=== PATIENT | female | born 1995 | race Caucasian/White ===

== ENCOUNTER 2017-11-19 13:42 | Emergency (ER) | payer OTHER ==
[~2017-11-19] VITALS: Ht 165.1 cm; Wt 70.8 kg
--- NOTE | 2017-11-19 13:49 | NUR ---
[id number] FROM HOME: S/P WITNESSED SEIZURE x 3. VERSED 5 GIVEN IN FIELD. A/OX1. UNRESPONSIVE. FAMILY AT BEDSIDE. VSS. ST118. WILL CONTINUE TO MONITOR. SAFETY MEASURES IN PLACE. CALL LIGHT WITHIN REACH.
[2017-11-19 14:49] LABS: BASOPHILS % (AUTO) 0.3 % (0.0-2.0); HEMATOCRIT 41 % (33-45); HEMOGLOBIN 13.8 g/dL (11.5-14.8); LYMPHOCYTES # (AUTO) 0.5 /CMM (0.8-4.8); LYMPHOCYTES % (AUTO) 3.4 % (20.0-44.0); MEAN CORPUSCULAR HGB CONC 34 g/dl (31.0-36.0); MEAN CORPUSCULAR VOLUME 89 fL (82-100); MONOCYTES % (AUTO) 6.2 % (2.0-12.0); NEUTROPHILS # (AUTO) 14.1 /CMM (1.8-8.9); NEUTROPHILS % (AUTO) 90.1 % (43.0-81.0); PLATELET COUNT (AUTO) 270 /CMM (150-450); RDW COEFFICIENT OF VARIATION 13.1 (11.5-15.0); RED BLOOD CELL COUNT(AUTO) 4.58 MIL/uL (4.0-5.2); WHITE BLOOD COUNT (AUTO) 15.6 K/uL (4.3-11.0)
[2017-11-19 14:59] LABS: CALCIUM, SERUM 8.5 mg/dL (8.5-10.1); CARBON DIOXIDE 26 mmol/L (21-32); CHLORIDE 106 mmol/L (98-107); CREATININE 1.4 mg/dL (0.6-1.3); GLUCOSE 100 mg/dL (74-106); POTASSIUM 5.1 mmol/L (3.5-5.1); SODIUM SERUM 141 mmol/L (136-145); UREA NITROGEN, BLOOD 13 mg/dL (7-18)
[2017-11-19] MEDS ORDERED: IV NS 0.9% 1,000 ML BAG IV ONE ×2 (15:00→16:30)
[2017-11-19] MEDS ORDERED: LEVETIRACETAM (500MG) 500 MG in IV NS 0.9% 100 ML IV ONE (15:00)
[2017-11-19 15:03] LABS: INR 0.95 (0.85-1.15)
[2017-11-19 15:12] LABS: ACETAMINOPHEN 0 ug/ml (10-30); ALANINE AMINOTRANSFERASE 40 U/L (12-78); ALCOHOL, BLOOD < 3 mg/dL (0-0); ALKALINE PHOSPHATASE 80 U/L (46-116); ASPARTATE AMINOTRANSFERASE 71 U/L (15-37); BILIRUBIN,DIRECT 0.1 mg/dL (0.0-0.2); BILIRUBIN,TOTAL 0.2 mg/dL (0.2-1.0); SALICYLATE 1.3 mg/dL (2.8-20.0); TOTAL PROTEIN, SERUM 7.3 g/dL (6.4-8.2)
--- NOTE | 2017-11-19 15:16 | NUR ---
(16 ) FR koenig catheter inserted per sterile protocal. Immediate output (500 )ML of urine, color (YELLOW ), clarity (CLEAR ).
[2017-11-19 15:19] LABS: APPEARANCE,URINE Clear (CLEAR); BILIRUBIN,URINE Negative (NEGATIVE); BLOOD, URINE Moderate Ery/uL (NEGATIVE); COLOR,URINE Yellow (YELLOW); KETONES,URINE Negative (NEGATIVE); LEUKOCYTE ESTERASE ,URINE Negative (NEGATIVE); NITRITE, URINE Negative (NEGATIVE); PROTEIN,URINE 30 mg/dl (NEGATIVE); UGLUCOSE Negative (NEGATIVE); UROBILINOGEN,URINE 0.2 EU/dL (0.2)
[2017-11-19 15:22] LABS: CREATINE KINASE, TOTAL 958 U/L (26-192); THYROID STIMULATING HORMONE 1.504 uIU/mL (0.358-3.74)
[2017-11-19 15:35] LABS: BACTERIA,URINE None seen /HPF (None Seen); SQUAMOUS EPITHELIAL CELL,UR Few /HPF (None Seen)
--- NOTE | 2017-11-19 16:02 | NUR ---
PATIENT PULLED OUT IV FROM LEFT HAND. SITE SECURED WITH GAUZE AND TAPE. NEW IV STARTED ON RAC, 20G. PATIENT VERY IRRITABLE, ATTEMPTING TO PULL WRIGHT ALSO. INFORMED, STATED OKAY TO DC WRIGHT CATHETER. WRIGHT REMOVED ALSO.
[2017-11-19] MEDS ORDERED: MIDAZOLAM HCL 2 MG/2ML VIAL ONE (16:15)
--- NOTE | 2017-11-19 16:28 | NUR ---
PATIENT TAKEN TO CT, MEDICATED WIT VERSED PRIOR TO TRANSPORT
[2017-11-19] MEDS ORDERED: MIDAZOLAM HCL 2 MG/2ML VIAL IV ONE ×2 (16:30)
[2017-11-19] MEDS: IV NS 0.9% 1,000 ML BAG IV ONE ×2 (16:30→16:40)
--- NOTE | 2017-11-19 16:40 | NUR ---
PER DR. DAVIS, ADD 1.2L NS ON TOP OF PREVIOUS 1L GIVEN PER SEPSIS PROTOCOL.
--- NOTE | 2017-11-19 16:42 | NUR ---
PATIENT RETURNED FROM CT IN STABLE CONDITION.
[2017-11-19] MEDS ORDERED: VANCOMYCIN 1 GM in IV D5W 250 ML IV ONE (17:00)
[2017-11-19] MEDS ORDERED: PIPERACILLIN /TAZOBACTAM 3.375 G in IV D5W 50 ML IV ONE (17:00)
--- NOTE | 2017-11-19 18:05 | NUR ---
RECEIVED A CALL FROM [facility] AND SPOKE TO EDGAR. WAS TOLD THAT THIS PT WILL BE GOING TO [facility] ED. DR CASSIDY IS THE ACCEPTING MD. NUMBER FOR REPORT IS [phone]. [facility] TRANSPORT WILL ARRIVE AT 1835.
--- NOTE | 2017-11-19 18:14 | NUR ---
REPORT GIVEN TO SUSHILA BENAVIDES FOR [facility] UPON TRANSFER
--- NOTE | 2017-11-19 18:46 | NUR ---
REPORT GIVEN TO TEJAL THOMAS WITH [facility] FOR TRANSFER TO [facility].
[2017-11-19 18:47] VITALS: BP 124/98
--- NOTE | 2017-11-19 19:08 | NUR ---
PT TRANSFERED TO [facility] PER ACLS PROTOCOL.
== END 2017-11-19 19:07 | disposition short-term general hospital (02) ==
LOC: ER 13:47
DX: R56.9 Unspecified convulsions (principal); J69.0 Pneumonitis due to inhalation of food and vomit; F32.9 Major depressive disorder, single episode, unspecified; F41.9 Anxiety disorder, unspecified; F10.10 Alcohol abuse, uncomplicated; F12.10 Cannabis abuse, uncomplicated; Z91.5 Personal history of self-harm
CPT/HCPCS: 36415; 70450-TC; 71045-TC; 72125-TC; 80048-TC; 80076-TC; 80305; 81000-TC; 82550-TC; 82553-TC; 82962-TC; 83605-TC; 83735-TC; 84443-TC; 84703-TC; 85025-TC; 85730-TC; 87040-TC; 87086-TC; A4606; G0480; J1953; J2250; J2543; J3370; J7030; J7050; J7060; Z7610

== ENCOUNTER 2019-10-27 23:38 | Emergency (ER) | payer OTHER ==
[~2019-10-27] VITALS: Ht 162.6 cm; Wt 54.4 kg
[2019-10-28 00:05] LABS: BASOPHILS % (AUTO) 0.4 % (0.0-2.0); EOSINOPHILS % (AUTO) 0.5 % (0.0-6.0); HEMATOCRIT 42 % (33-45); HEMOGLOBIN 14.2 g/dL (11.5-14.8); LYMPHOCYTES # (AUTO) 1.9 /CMM (0.8-4.8); LYMPHOCYTES % (AUTO) 21.4 % (20.0-44.0); MEAN CORPUSCULAR HGB CONC 34 g/dl (31.0-36.0); MEAN CORPUSCULAR VOLUME 89 fL (82-100); MONOCYTES # (AUTO) 0.5 /CMM (0.1-1.30); NEUTROPHILS # (AUTO) 6.3 /CMM (1.8-8.9); NEUTROPHILS % (AUTO) 71.7 % (43.0-81.0); PLATELET COUNT (AUTO) 266 /CMM (150-450); RED BLOOD CELL COUNT(AUTO) 4.72 MIL/uL (4.0-5.2); WHITE BLOOD COUNT (AUTO) 8.8 K/uL (4.3-11.0)
[2019-10-28 00:08] LABS: APPEARANCE,URINE Cloudy (CLEAR); BILIRUBIN,URINE Negative (NEGATIVE); BLOOD, URINE Small Ery/uL (NEGATIVE); COLOR,URINE Yellow (YELLOW); KETONES,URINE Negative (NEGATIVE); LEUKOCYTE ESTERASE ,URINE Negative (NEGATIVE); NITRITE, URINE Negative (NEGATIVE); PH,URINE 7.5 (5.0-8.0); PROTEIN,URINE 30 mg/dl (NEGATIVE); UGLUCOSE Negative (NEGATIVE)
[2019-10-28 00:12] LABS: CARBON DIOXIDE 28 mmol/L (21-32); CHLORIDE 102 mmol/L (98-107); CREATININE 0.9 mg/dL (0.6-1.3); GLUCOSE 106 mg/dL (74-106); POTASSIUM 3.9 mmol/L (3.5-5.1); SODIUM SERUM 137 mmol/L (136-145); UREA NITROGEN, BLOOD 7 mg/dL (7-18)
--- NOTE | 2019-10-28 00:14 | NUR ---
PATIENT CAME TO ER BED 11 C/O TAKING ABOUT 10-15 NORCO PILLS. PATIENT STATES THAT SHE WAS CALLED [phone] BY HER FRIEND WHEN THE FRIEND WAS TOLD THE PATIENT TOOK MULTIPLE AMOUNTS OF HYDROCODONE. PATIENT DENIES SI AND HI. PATIENT IS AAOX4. NO SOB. BREATHING EVENLY AND UNLABORED ON ROOM AIR.
--- NOTE | 2019-10-28 00:15 | NUR ---
SITTER AT BEDSIDE.
[2019-10-28 00:24] LABS: ACETAMINOPHEN 27 ug/ml (10-30); ALANINE AMINOTRANSFERASE 23 U/L (12-78); ALBUMIN 4.1 g/dL (3.4-5.0); ALCOHOL, BLOOD < 3 mg/dL (0-0); ALKALINE PHOSPHATASE 69 U/L (46-116); ASPARTATE AMINOTRANSFERASE 19 U/L (15-37); BILIRUBIN,DIRECT 0.1 mg/dL (0.0-0.2); BILIRUBIN,TOTAL 0.6 mg/dL (0.2-1.0); TOTAL PROTEIN, SERUM 7.4 g/dL (6.4-8.2)
[2019-10-28 00:24] LABS: BACTERIA,URINE Few /HPF (None Seen); RBC,URINE 0-2 /HPF (0-2); SQUAMOUS EPITHELIAL CELL,UR Few /HPF (None Seen); URINE AMORPHOUS PHOSPHATES Moderate /HPF (None Seen); WBC,URINE 0-2 /HPF (0-3)
[2019-10-28 00:25] LABS: SALICYLATE 0.7 mg/dL (2.8-20.0)
--- NOTE | 2019-10-28 00:27 | NUR ---
PATIENT PLACED ON TRAINING AND DEVELOPMENT SPECIALIST AND NON-SLIP SOCKS.
--- NOTE | 2019-10-28 02:06 | NUR ---
PATIENT IS RESTING, AWAKE. AAOX4. NO SOB. BREATHING EVENLY AND UNLABORED ON ROOM AIR. NOT IN ANY DISTRESS.
--- NOTE | 2019-10-28 05:24 | NUR ---
Patient discharged to home in stable condition. Written and verbal after care instructions given. Patient verbalizes understanding of instruction. ambulatory with a steady gait noted. pt aaox4 no acute distress noted, resp even and unlabored. advice pt not to dirve or operate any machinery due to drug use. pt denies is/hi at this time. pt s/o in the waiting room for discharge.
[2019-10-28 05:25] VITALS: BP 116/62
--- NOTE | 2019-10-28 05:25 | NUR ---
PATIENT IS PICKED UP BY GIRLFRIEND.
== END 2019-10-28 05:25 | disposition home or self-care (01) ==
LOC: ER 23:38
DX: T39.1X1A Poisoning by 4-Aminophenol derivatives, accidental (unintentional), initial encounter (principal); F19.10 Other psychoactive substance abuse, uncomplicated; F32.9 Major depressive disorder, single episode, unspecified; F41.9 Anxiety disorder, unspecified; Y92.89 Other specified places as the place of occurrence of the external cause
CPT/HCPCS: 36415; 80048; 80076; 80305; 80307; 80329; 81001; 85025; 99285; A6403; G0480; 81000-TC